=== PATIENT | female | born 1950 | race Caucasian/White ===

== ENCOUNTER → 2019-09-19 11:51 | Day surgery (SDC) | payer MEDICARE ==
[~2019-09-19 11:51] MED LIST: Bupivacaine 0.25% EPI 200,000* 30 ML SDV ONE; Clindamycin 900 MG/D5W BAG(*) 900 MG/50 ML BAG IVPB ONE; Dexamethasone IV* 4 MG/ML 1 ML (4 MG) ONE; DiMENhydriNATE IV* 50 MG/ML VIAL IV PUSH PRN; EPHEDrine (Pressors)* 50 MG/ML VIAL ONE; EPINEPHRINE 1 MG/ML 1 ML VIAL ONE; Glycopyrrolate IV* 0.2 MG/ML 1 ML VIAL ONE; HYDROcodone/ACETAMIN 5-325 MG* 1 TAB PO PRN; Lidocaine 2% PF * 5 ML VIAL ONE; Midazolam* 1 MG/ML 5 ML VIAL (5 MG) ONE; Naloxone* 0.4 MG/ML 1 ML VIAL IV PRN; Neostigmine Methylsulfate* 3 MG/3 ML SYRINGE ONE; Ondansetron INJ* 2 MG/ML VIAL ONE; Phenylephrine 10 MG/ML VIAL* 1 ML VIAL ONE; Phenylephrine 40 MCG/ML SYRINGE ONE; Propofol* 10 MG/ML 20 ML BTL ONE; ROPIVACAINE 5 MG/ML 30 ML BTL (0.5%) ONE; Rocuronium* 10 MG/ML VIAL ONE; fentaNYL* 50 MCG/ML 2 ML VIAL (100 MCG VIAL) ONE; oxyCODONE/Acetamin 5/325 MG* TAB PO PRN
[2019-09-19] MEDS: fentaNYL* 50 MCG/ML 2 ML VIAL (100 MCG VIAL) IV PRN ×2 (17:42→17:50)
[2019-09-19 19:50] VITALS: BP 123/78
--- NOTE | 2019-09-20 00:19 | OP ---
OPERATIVE REPORT: DATE OF OPERATION: 09/19/19 DATE OF : 46 SURGEON: Dr. Rogelio Currie. FOOD TRADES ASSISTANTS: DAFNE Lima. A physician assistant maintenance manager was required for the length of the procedure for assistance with patient positi oning, retraction, instrumentation and closure. ANESTHESIOLOGIST: Dr. Brian Willingham. ANESTHESIA: General anesthesia, regional interscalene block anesthesia. PRE-OP DIAGNOSES: 1. Right shoulder rotator cuff tendon tear, supraspinatus, anterior full thickness. 2. Right shoulder subacromial impingement and bursitis. 3. Right shoulder acromioclavicular joint osteoarthritis. 4. Right shoulder possible proximal biceps tendinosis. POST-OP DIAGNOSES: 1. Right shoulder rotator cuff tendon tear, supraspinatus, full thickness or high grade partial thic kness undersurface tear, 95%, anterior supraspinatus. 2. Right shoulder subacromial impingement and bursitis. 3. Right shoulder acromioclavicular joint osteoarthritis. 4. Right shoulder proximal biceps tendinosis. OPERATIVE PROCEDURES: 1. Right shoulder arthroscopic rotator cuff tendon repair, supraspinatus, double- row construct. 2. Right shoulder arthroscopic subacromial decompression. 3. Right shoulder arthroscopic distal clavicle resection. 4. Right shoulder arthroscopic proximal long head biceps tenodesis. ANTIBIOTICS: Clindamycin 900 mg IV. IV FLUIDS: See anesthesia note. CQJA-TV-RTAN TIME: 69 minutes. SPECIMENS: None. IMPLANTS: Arthrex 5.5 mm double loaded corkscrew suture anchor, double loaded with suture tape x1. Arthrex SwiveLock 4.75 mm anchor x1. COMPLICATIONS: None. ESTIMATED BLOOD LOSS: Minimal. INDICATIONS FOR PROCEDURE: The patient is a 69-year-old woman, right-hand dominant, retired, who inj ured herself 4-1/2 months preoperatively on 05/02/19. The patient failed to respond to nonoperative m anagement and opted for surgery. The patient's surgery was initially scheduled for 06/27/19, but was postponed secondary to an abscess on her lower back that was shown to be positive for MRSA. The patient then had a skin rash, which wa s concerning by Dermatology for scabies. This was eventually determined to be a reaction to statins a nd the patient was finally cleared for surgery. Discussed risks and potential complications of surgery. Discussed biceps treatment either with relea se or tenodesis and the patient favored tenodesis. DESCRIPTION OF PROCEDURE: In preoperative holding, the patient signed written consent. Operative ex tremity was marked in preoperative holding. The patient underwent regional interscalene block by Azalia lynch in preoperative holding. The patient was brought back to the operating room, placed supine on operating room table. Sedated a nd intubated. The patient was converted to a lateral decubitus position. Ten pounds longitudinal tr action, appropriate amount of forward flexion, abduction of shoulder. Axillary roll. Carrera bag harde tutu. All bony prominences padded. Prepped and draped. Surgical time-out performed. Right shoulder had 30 cc of normal saline placed from posterior into the glenohumeral joint. I then established right shoulder glenohumeral joint portal using standard technique. Commenced diagnostic arthroscopy. The patient had some grade 1 to 2 wear of the glenoid about its mid point, but slightly more anterior than posterior. No focal articular cartilage lesions, however. Clearly some biceps t endinosis long head. Clearly high-grade tearing of the undersurface of the supraspinatus. Established anterior glenohumeral joint portal using standard technique. No subscap tear. Probed th e biceps and superior labrum and decided to treat the biceps. Brought the scissors in and cut the bi ceps near its origin, long head. I debrided with arthroscopic shaver the superior labrum. I debride d some rotator cuff interval tissue. Smoothed down some frayed tissue on the undersurface of the rot ator cuff. It looked as though there was a full-thickness tear on the anterior most supraspinatus, so I did not bother marking it with a spinal needle, however, I could not see into the subacromial space. I removed instruments and fluid from the glenohumeral joint.. I next moved to the subacromial space. Anterior and posterior portals. Established lateral and the posterolateral portals under direct vis ualization. Established an anterolateral portal as well. There was subacromial bursitis that was de brided with arthroscopic shaver. Visualized the rotator cuff. At first glance, the full-thickness t ear was not appreciated. I probed with a blunt end of a switching stick and there appeared to be lupe e palpable bone without tendon over it. I shaved off a layer of synovium overlying the rotator cuff and it was clear that there was either a full thickness or a 95% or 99% under-sided rotator cuff tear . More likely, it was full thickness. After debriding the layer of synovium or a bursa directly over lying the rotator cuff, I appreciated a crescent shaped anterior supraspinatus tear with some minimal retraction. The ends of the rotator cuff were freshened with arthroscopic shaver. I prepared the fo otprint of the humeral head with cautery device and then arthroscopic kayleen. I noted that the long head of the biceps was directly adjacent to the rotator cuff tear. It had not retracted out of the joint. I had anticipated doing an open proximal biceps tenodesis. However, given that the tendon was freely visible and reachable by me and directly adjacent to the anterior supraspinatus rotator cuff tendon tear, I decided to perform an arthroscopic tenodesis and incorporated into my rotator cuff repair. Through a superolateral poke hole, I placed a medial row anchor, corkscrew. I placed horizontal daniel ress stitches into the supraspinatus tendon. With the first of my 4 strands of suture from this anch or, I first placed the stitch through the long head biceps tendon and then through a separate pass, I passed it through the rotator cuff itself. I used an antegrade suture passer, Scorpion. I next tied these horizontal mattress stitches and there was excellent approximation of rotator cuff to bone, anatomic appearing. I took the suture tape from the medial row and placed it into a lateral row SwiveLock suture anchor. The repair was certainly stable to movement of the humerus and to probing. I next performed subacromial decompression through a lateral portal. I used an arthroscopic kayleen to smooth out the spurs that were small about the anterior undersurface of the acromion. This flattened out the acromion undersurface nicely. I next moved to the AC joint. I debrided synovitis with caute ry device and then removed 8 mm of the distal end of the clavicle with an arthroscopic kayleen. Closed skin incisions with [id number] 12 stitches using nylon 3-0 suture. Xeroform, 4 x 4s, ABDs , foam tape. The patient was placed in a sling and an abduction pillow. Awakened, extubated and sen t to the PACU. DISPOSITION: Wound care instructions. Percocet as needed for pain control. The patient will follow up 10 to 14 days postoperatively in clinic. Sling for 6 weeks. No physical therapy for 6 weeks. [id number]/[facility] #: [id number]
== END | disposition home or self-care (01) ==
LOC: OR 11:51
PROVIDERS: ATTEND Orthopaedic Surgery
DX: S46.011A Strain of muscle(s) and tendon(s) of the rotator cuff of right shoulder, initial encounter (principal); M75.41 Impingement syndrome of right shoulder; M75.51 Bursitis of right shoulder; M19.011 Primary osteoarthritis, right shoulder; M75.21 Bicipital tendinitis, right shoulder; E11.9 Type 2 diabetes mellitus without complications; Z79.84 Long term (current) use of oral hypoglycemic drugs; I12.9 Hypertensive chronic kidney disease with stage 1 through stage 4 chronic kidney disease, or unspecified chronic kidney disease; N18.3 Chronic kidney disease, stage 3 (moderate); G89.18 Other acute postprocedural pain; W19.XXXA Unspecified fall, initial encounter; Y92.9 Unspecified place or not applicable
CPT/HCPCS: C1713; J1100; J2250; J2405; J2704; J2710; J2795; J3010